=== PATIENT | female | born 1935 | race Caucasian/White ===

== ENCOUNTER 2023-08-12 08:33 | Inpatient (IN) | payer BC, MEDICARE ==
[2023-08-12 09:37] LABS: #Basophils 0.1 thou/uL (0.0-0.2); #Eosinphils 0.1 thou/uL (0.0-0.7); #Monocytes 0.5 thou/uL (0.11-0.59); #Neutrophils 3.7 thou/uL (1.40-6.50); %Lymphocytes 24.5 % (21.0-51.0); %Monocytes 8.6 % (0.0-10.0); %Neutrophils 64.6 % (42.0-75.0); Hematocrit 41.5 % (36.0-47.0); Hemoglobin 13.6 g/dL (12.0-16.0); Mean Corpuscular HGB CONC 32.8 g/dL (32.0-36.0); Mean Corpuscular Hemoglobin 28.9 pg (27.0-31.0); Mean Corpuscular Volume 88.3 fl (78.0-98.0); Mean Platelet Volume 9.1 fL (7.4-10.4); Platelet Count 238 10x3/uL (130-400); RBC Distribution Width 14.5 % (11.5-14.5); White Blood Cell (WBC) Count 5.8 10x3/uL (4.8-10.8)
[2023-08-12 10:06] LABS: ALT (SGPT) 9 U/L (8-55); AST (SGOT) 20 U/L (5-34); Albumin 3.9 g/dL (3.4-4.8); Alkaline Phosphatase 108 U/L (40-110); Anion Gap 19 mmol/L (10-20); BUN (Urea Nitrogen) 34 mg/dL (9.8-20.1); Bilirubin, Total 0.5 mg/dL (0.2-1.2); Calc. Creatinine Clearance 0 mL/min (70-130); Carbon Dioxide 18 mmol/L (23-31); Chloride 107 mmol/L (98-107); Estimated GFR 39; Globulin 3.8 g/dL (2.4-3.5); Glucose 78 mg/dL (83-110); Potassium 5.1 mmol/L (3.5-5.1); Protein, Total 7.7 g/dL (5.8-8.1); Sodium 139 mmol/L (136-145)
[2023-08-12 10:08] LABS: Troponin I Less than 0.010 ng/mL (< 0.028)
[2023-08-12 10:14] LABS: Bilirubin Negative (Negative); Blood, Urine 3+ (Negative); CAUTI Indications for Culture Dysuria,urgency,freq; Clarity Extra Turbid (Clear); Glucose, Urine (Dipstick) Normal (Negative); Ketone, Urine 10 mg/dL (Negative); Leukocyte 500 Leu/uL (Negative); Nitrite 1+ (Negative); Protein, Urine (Dipstick) 30 mg/dL (Neg-Trace); RBC/HPF Greater than 50 HPF (0-3); Specific Gravity, Urine 1.012 (1.002-1.036); Squamous Epithelial 0-3 HPF (0-3); Urobilinogen Normal mg/dL (Less than 2); WBC/HPF Greater than 50 HPF (0-3)
[2023-08-12 10:19] LABS: Bacteria/HPF 1+ HPF (None Seen)
[2023-08-12 10:21] LABS: Urine Culture Reflex Yes Yes
[2023-08-12] MEDS ORDERED: cefTRIAXone (ROCEPHIN) 1 GM VIAL ONE (11:17)
[2023-08-12] MEDS ORDERED: Sodium Chloride 0.9% 1,000 ML IV SCH (12:30)
[2023-08-12 12:53] VITALS: BMI 24.7
[2023-08-12] MEDS: Ondansetron ODT 4 MG TAB PO PRN (14:13)
[2023-08-12] MEDS ORDERED: cefTRIAXone\\ROCEPHIN 1 GM in Sodium Chloride 0.9% 100 ML IVPB SCH (15:00)
[2023-08-12] MEDS ORDERED: LevoFLOXacin 750 mg/D5W 750 MG in Premix Bag 1 BAG IVPB SCH (18:00)
[2023-08-12] MEDS: Mirtazapine 15 MG Soltab PO SCH (20:02)
[2023-08-12] MEDS: Famotidine 20 MG TAB PO SCH (20:02)
[2023-08-12] MEDS: Atorvastatin Calcium 10 MG TAB PO SCH (20:02)
[2023-08-13] MEDS: Ondansetron ODT 4 MG TAB PO PRN (06:12)
[2023-08-13 06:30] LABS: #Basophils 0.1 thou/uL (0.0-0.2); #Eosinphils 0.1 thou/uL (0.0-0.7); #Monocytes 0.6 thou/uL (0.11-0.59); #Neutrophils 5.5 thou/uL (1.40-6.50); %Basophils 0.7 % (0.0-1.0); %Eosinophils 1.3 % (0.0-10.0); %Lymphocytes 15.1 % (21.0-51.0); %Monocytes 7.8 % (0.0-10.0); %Neutrophils 74.8 % (42.0-75.0); Hematocrit 40.5 % (36.0-47.0); Hemoglobin 13.2 g/dL (12.0-16.0); Mean Corpuscular HGB CONC 32.6 g/dL (32.0-36.0); Mean Corpuscular Hemoglobin 29.2 pg (27.0-31.0); Mean Corpuscular Volume 89.6 fl (78.0-98.0); Mean Platelet Volume 9.2 fL (7.4-10.4); Platelet Count 210 10x3/uL (130-400); RBC Distribution Width 14.3 % (11.5-14.5); Red Blood Cell (RBC) Count 4.52 mill/uL (4.20-5.40); White Blood Cell (WBC) Count 7.4 10x3/uL (4.8-10.8)
[2023-08-13] MEDS: Sertraline 25 MG TAB PO SCH (08:32)
[2023-08-13] MEDS: Famotidine 20 MG TAB PO SCH (08:32)
[2023-08-13] MEDS: Acetaminophen 325 MG TAB PO PRN ×2 (08:32→23:45)
[2023-08-13] MEDS ORDERED: Ondansetron PF 4 MG/2 ML Vial IVP SCH (12:15)
[2023-08-13] MEDS: Sodium Chloride 0.9% 1,000 ML IV SCH (12:48)
[2023-08-13] MEDS ORDERED: cefTRIAXone\\ROCEPHIN 1 GM in Sodium Chloride 0.9% 100 ML IVPB SCH (16:00)
[2023-08-13] MEDS: Atorvastatin Calcium 10 MG TAB PO SCH (20:30)
[2023-08-13] MEDS: Mirtazapine 15 MG Soltab PO SCH (20:30)
[2023-08-14] MEDS ORDERED: OLANZapine 2.5 MG TAB PO SCH (04:45)
[2023-08-14] MEDS: Sodium Chloride 0.9% 1,000 ML IV SCH ×2 (05:36→17:41)
[2023-08-14] MEDS: Famotidine 20 MG TAB PO SCH (08:33)
[2023-08-14] MEDS: Sertraline 25 MG TAB PO SCH (08:33)
[2023-08-14] MEDS ORDERED: Melatonin 3 MG TAB PO PRN (08:46)
[2023-08-14] MEDS: Gabapentin 300 MG CAP PO SCH ×2 (09:26→15:30)
[2023-08-14] MEDS ORDERED: LevoFLOXacin 500 mg/D5W 500 MG in Premix Bag 1 BAG IVPB SCH (18:00)
[2023-08-14] MEDS: Mirtazapine 15 MG Soltab PO SCH (20:38)
[2023-08-14] MEDS: Atorvastatin Calcium 10 MG TAB PO SCH (20:39)
[2023-08-14] MEDS ORDERED: Gabapentin 300 MG CAP PO SCH (21:00)
[2023-08-15 07:35] LABS: #Basophils 0.1 thou/uL (0.0-0.2); #Eosinphils 0.2 thou/uL (0.0-0.7); #Monocytes 0.8 thou/uL (0.11-0.59); #Neutrophils 4.6 thou/uL (1.40-6.50); %Basophils 0.7 % (0.0-1.0); %Eosinophils 3.4 % (0.0-10.0); %Lymphocytes 18.7 % (21.0-51.0); %Monocytes 11.6 % (0.0-10.0); %Neutrophils 65.3 % (42.0-75.0); Hematocrit 39.9 % (36.0-47.0); Hemoglobin 13.1 g/dL (12.0-16.0); Mean Corpuscular HGB CONC 32.8 g/dL (32.0-36.0); Mean Corpuscular Hemoglobin 29.3 pg (27.0-31.0); Mean Corpuscular Volume 89.3 fl (78.0-98.0); Mean Platelet Volume 9.1 fL (7.4-10.4); Platelet Count 181 10x3/uL (130-400); RBC Distribution Width 14.5 % (11.5-14.5); Red Blood Cell (RBC) Count 4.47 mill/uL (4.20-5.40); White Blood Cell (WBC) Count 7.1 10x3/uL (4.8-10.8)
[2023-08-15 08:13] LABS: Anion Gap 11 mmol/L (10-20); BUN (Urea Nitrogen) 22 mg/dL (9.8-20.1); Calc. Creatinine Clearance 32 mL/min (70-130); Calcium 8.4 mg/dL (7.8-10.44); Carbon Dioxide 20 mmol/L (23-31); Chloride 113 mmol/L (98-107); Estimated GFR 49; Glucose 97 mg/dL (83-110); Potassium 4.1 mmol/L (3.5-5.1); Sodium 140 mmol/L (136-145)
[2023-08-15] MEDS: Sodium Chloride 0.9% 1,000 ML IV SCH (08:16)
[2023-08-15] MEDS: Sertraline 25 MG TAB PO SCH (08:16)
[2023-08-15] MEDS: Famotidine 20 MG TAB PO SCH (08:16)
[2023-08-15] MEDS ORDERED: Gabapentin 300 MG CAP PO SCH (09:00)
[2023-08-15 15:48] VITALS: BP 166/75; TEMP 97.4
== END 2023-08-15 16:15 | DRG 690 ==
LOC: ERS 08:33 → T4-A 11:21
PROVIDERS: ADMIT Family Medicine; ATTEND Internal Medicine
PROC: 0T9B70Z Drainage of Bladder with Drainage Device, Via Natural or Artificial Opening (ICD-10-PCS; principal; 2023-08-12)
DX: N39.0 Urinary tract infection, site not specified (principal); N17.9 Acute kidney failure, unspecified; Z88.2 Allergy status to sulfonamides; Z88.8 Allergy status to other drugs, medicaments and biological substances; Z79.899 Other long term (current) drug therapy; K21.9 Gastro-esophageal reflux disease without esophagitis; E78.5 Hyperlipidemia, unspecified; Z51.5 Encounter for palliative care; M19.90 Unspecified osteoarthritis, unspecified site; Z90.89 Acquired absence of other organs; F32.A Depression, unspecified; F41.9 Anxiety disorder, unspecified; Z66 Do not resuscitate; I12.9 Hypertensive chronic kidney disease with stage 1 through stage 4 chronic kidney disease, or unspecified chronic kidney disease; N18.30 Chronic kidney disease, stage 3 unspecified
CPT/HCPCS: 36415; 51701; 70450; 71045; 80048; 80053; 81001; 84484; 85025; 87086; 93005; 96365; J0696; J1956; J2405; J3490; J7050; Q0162

== ENCOUNTER 2023-11-08 09:29 | Outpatient (CLI) | payer MEDICARE | END 2023-11-08 09:30 | disposition home or self-care (01) | LOC: ULT 09:29 | PROVIDERS: ATTEND Nurse Practitioner Family | DX: R32 Unspecified urinary incontinence (principal); N32.81 Overactive bladder; N13.30 Unspecified hydronephrosis | CPT/HCPCS: 76770 ==

== ENCOUNTER 2023-11-25 09:36 | Outpatient (CLI) | payer MEDICARE | END 2023-11-25 09:37 | disposition home or self-care (01) | LOC: CT 09:36 | PROVIDERS: ATTEND Urology | DX: R06.02 Shortness of breath (principal); R32 Unspecified urinary incontinence; N13.30 Unspecified hydronephrosis; S43.004A Unspecified dislocation of right shoulder joint, initial encounter; N13.4 Hydroureter; K44.9 Diaphragmatic hernia without obstruction or gangrene; I70.90 Unspecified atherosclerosis; N83.8 Other noninflammatory disorders of ovary, fallopian tube and broad ligament | CPT/HCPCS: 71046; 74176; 93005; 93010 ==